=== PATIENT | female | born 1960 | race Caucasian/White ===

== ENCOUNTER 2017-11-17 09:20 | Emergency (ER) | payer BC, SELFPAY ==
[2017-11-17 09:37] VITALS: BP 122/73; PULSE 81; RESP 20; TEMP 36.8; O2SAT 99; BMI 25.8
--- NOTE | 2017-11-17 10:15 | HMH.EDUTC ---
[facility] [place] Clinical Impression: Influenza B Disposition: Home, Self-Care Condition on Discharge: Good Instructions: Influenza Additional Instructions: * Discussed tamiflu. Pt declined. * Lots of rest * Increase fluids, water, gatorade, powerade, pedialyte if /toddler/child * Monitor Temp. Tylenol every 4 hours as needed no more then 5 times a day or 4000mg in 24 hours and/or ibuprofen every 6 hours as needed no more then 3200mg in 24 hours (as long as your primary care doctor has told you that it is ok to take both) for fever/aches/pain. ER if fever no less than 101 despite tylenol and Ibuprofen * OTC cold/flu/sinus medication is ok but pick one. Do not take multiple different ones as they have similar ingredients and you can overdose on cold medication. * You (or your child) are contagious until no fever, aches, chills x 24 hours without medication for symptoms. Follow up with your primary care IMMEDIATELY for new or worsening symptoms, improvement followed by suddenly feeling worse OR no noticeable improvement over the next 48-72 hours. 911 for difficulty breathing Time of Disposition: 10:44 Medical Decision Making Vital Signs: 11/17/17 09:37 Temperature 98.2 F Temperature Source Temporal Artery Scan Pulse Rate [Right] 81 Respiratory Rate 20 Blood Pressure [Right Arm] 122/73 Blood Pressure Mean [Right Arm] 89 Blood Pressure Source [Right Arm] Automatic Cuff Blood Pressure Position [Right Arm] Sitting 02 Sat by Pulse Oximetry 99 Oxygen Delivery Method Room Air - Lab Data Lab results reviewed: Yes: I reviewed the patient's lab results. Lab Results 11/17/17 09:36: Influenza Type A Ag Negative, Influenza Type B Ag Positive A - Rigo Inquiry Pt receiving controlled substance: No [facility] [place] HPI - General Stated complaint: flu like symptoms Time Seen by Provider: 11/17/17 10:15 Mode of Arrival: Ambulatory Source of Information: Patient Limitations: No Limitations Description of Symptoms (Recalled from Triage Doc. by RN): COUGH, CONGESTION, BODY ACHES, FEVER HEENT Symptoms (Recalled from RN notes): Yes Resp Symptoms (Recalled from RN notes): No Skin Symptoms (Recalled from RN notes): No MS Symptoms (Recalled from RN notes): No Functional Status (Recalled from RN notes): N - History of Present Illness Provider Complaint: c/o nonprod cough, bodyaches, chills, fever 101, nasal congestion all starting yesterday. Minimal malaise late Thursday but woke up feeling much worse yesterday. No known sick contacts. Hasn't taken or tried anything for symptoms. Temp 99 this morning. - Related Data Home Medications Medication Instructions Recorded Confirmed Estradiol/Norethindrone Acet 0.05 mg * DAILY 11/17/17 11/17/17 [Combipatch 0.05-0.14 mg Ptch] Allergies Allergy/AdvReac Type Severity Reaction Status Date / Time No Known Allergies Allergy Verified 11/17/17 09:41 - Worker's Comp Is this a Worker's Comp case?: No [facility] History I have reviewed the patient's past medical history: Yes Medical History: Denies:: Diabetes Mellitus Type 2, Hypertension Other Surgeries: Yes: Other (myomectomy, laser surgery for dysplasia) - *Social History Smoking Status: Never smoker Alcohol Intake: never - Psychiatric History Expresses thoughts of harming self/others: None Suicide Plan Description: No Plan ROS Obtained: Yes Systems reviewed as appropriate & no additional complaints - Constitutional Constitutional: Reports as per HPI, Reports fatigue, Reports headache(s) (intermittently), Reports poor appetite (drinking well) - Eyes Eyes: Denies change in vision, Denies eye discharge, Denies eye pain - ENT Ears, Nose, Mouth, and Throat: Denies dizziness, Denies otalgia, Reports nasal congestion, Reports nasal discharge, Denies post nasal drip, Denies sinus pain, Denies sore throat - Cardiovascular Cardiovascular: Denies chest pain, Denies irregular heart rhythm - Respiratory Respiratory:
[2017-11-17 10:19] LABS: UTC Influenza A Antigen Negative (Negative); UTC Influenza B Antigen Positive (Negative)
== END 2017-11-17 10:49 | disposition home or self-care (01) ==
PROVIDERS: Emergency Provider Nurse Practitioner Family
DX: J11.1 Influenza due to unidentified influenza virus with other respiratory manifestations (principal)
CPT/HCPCS: 87804; 99202

== ENCOUNTER → 2017-12-22 13:20 | Outpatient (CLI) | payer BC, SELFPAY ==
[2017-12-22 14:04] LABS: Alanine Aminotransferase 31 U/L (12-78); Albumin Level 3.6 gm/dL (3.4-5.0); Alkaline Phosphatase 84 U/L (46-116); Anion Gap 10.3 mEq/L (5-15); Aspartate Amino Transferase 13 U/L (15-37); Basophils % 0.4 % (0.1-2.0); Bilirubin,Total 0.4 mg/dL (0.2-1.0); Blood Urea Nitrogen 20 mg/dL (7-18); Calcium 8.6 mg/dL (8.5-10.1); Carbon Dioxide 29 mmol/L (21.0-32.0); Chloride 105 mmol/L (98-107); Creatinine,Serum 0.78 mg/dL (0.55-1.02); Eosinophils # 0.1 K/mm3 (0.0-0.4); Eosinophils % 1.5 % (0.1-12.0); Estimated Glomerular Filt Rate 77 ml/min (>60); GFR (African American) 93 ML/MIN (>60); Globulin 3.5 gm/dl (1.3-3.2); Glucose 90 mg/dL (74-106); Hematocrit 42.7 % (37.0-47.0); Hemoglobin 14.1 g/dL (12.2-16.2); Lymphocytes # 1.4 K/mm3 (0.7-4.5); Lymphocytes % 20.5 K/mm3 (10-50); Mean Corpuscular HGB Conc 33.1 g/dL (31.8-35.4); Mean Corpuscular Hemoglobin 30.6 pg (27.0-31.2); Mean Corpuscular Volume 92.6 fl (81-99); Mean Platelet Volume 7.8 fl (7.4-10.4); Monocytes # 0.4 K/mm3 (0.1-1.0); Monocytes % 5.1 % (1.7-9.3); Neutrophils % 72.6 % (37.0-80.0); Platelet Count 263 K/mm3 (142-424); Potassium 4.3 mmoL/L (3.5-5.1); Red Blood Count 4.62 M/mm3 (4.20-5.40); Red Cell Distribution Width 12.7 % (11.5-17.5); Sodium 140 mmol/L (136-145); Thyroid Stimulating Hormone 0.59 uIU/ml (0.358-3.740); Total Protein,Serum 7.1 gm/dL (6.4-8.2); White Blood Count 6.9 K/mm3 (4.8-10.8)
[2017-12-22 16:12] LABS: Amphetamine/Metha Screen,Urine Negative ng/mL (<1000); Barbiturates Screen,Urine Negative ng/mL (<200); Benzodiazepines Screen,Urine Negative ng/mL (200); Cannabinoid Screen,Urine Negative ng/mL (<50); Cocaine Screen,Urine Negative ng/g (<300); Methadone Screen,Urine Negative ng/mL (<300); Opiate Screen,Urine Negative ng/mL (<300); Phencyclidine Screen,Urine Negative ng/mL (<25)
== END ==
PROVIDERS: Visit Provider Nurse Practitioner Psychiatric/Mental Health
DX: F33.0 Major depressive disorder, recurrent, mild (principal)
CPT/HCPCS: 36415; 80053; 80305; 84443; 85025

== ENCOUNTER → 2018-07-27 10:11 | Outpatient (POV) | payer BC, SELFPAY | PROVIDERS: Visit Provider Dermatology | DX: Z00.00 Encounter for general adult medical examination without abnormal findings (principal) ==

== ENCOUNTER → 2019-03-10 11:24 | Outpatient (CLI) | payer BC, SELFPAY ==
--- NOTE | 2019-03-10 11:33 | XR_ITS ---
XR foot LT min 3V HISTORY: ITS.REASON: PAIN IN LEFT TOES ORDERING PHYSICIAN: Adilene Garrett MD PATIENT AGE: 58 years COMPARISON: 05/21/2017 FINDINGS: There is osteosclerosis of the middle phalanx and distal phalanx of the third digit. There is cortical irregularity involving the PIP and DIP of the third digit. These findings are similar when compared to 05/21/2017. Is this the area of patient's pain?. There is decreased density involving the distal phalanx of the fourth digit nonspecific. No fracture or dislocation. IMPRESSION: 1. No change with no acute finding. 2. Chronic sclerotic changes with periarticular cortical irregularity at the PIP and DIP of the third digit. Not significantly changed
== END ==
PROVIDERS: PCP Emergency Medicine; Visit Provider Emergency Medicine
DX: M79.675 Pain in left toe(s) (principal)
CPT/HCPCS: 73630

== ENCOUNTER → 2019-07-14 19:20 | Outpatient (CLI) | payer BC, SELFPAY | PROVIDERS: Visit Provider Podiatrist | DX: L60.0 Ingrowing nail (principal) | CPT/HCPCS: 87102; 87206; 87220 ==

== ENCOUNTER 2020-03-30 09:15 | Emergency (ER) | payer BC, SELFPAY ==
[2020-03-30 09:19] VITALS: BP 144/85; PULSE 59; RESP 16; TEMP 37.1; O2SAT 98; BMI 25.8
--- NOTE | 2020-03-30 09:39 | PC.NURSE ---
visual acuity rt 20/40 -2 lt 20/40 -2
[2020-03-30 09:57] VITALS: BP 155/86; PULSE 90; RESP 18; O2SAT 97
--- NOTE | 2020-03-30 10:06 | HMH.EDEYEP ---
ED Disposition Clinical Impression: Irritation of eyelid, Corneal irritation of left eye Disposition: Home, Self-Care Condition on Discharge: Good Instructions: DI for Corneal Foreign Body-Eye, DI for Eye Pain Additional Instructions: You have been evaluated for pain to your left lower eyelid. Likely a foreign body that is no longer there. Please use erythromycin for 5 days. Take Tylenol and ibuprofen for pain. Follow-up with your primary care doctor. Follow-up with an product development chemist if you continue to have pain in the next day or 2. Return to the emergency department for any changes in your vision, eye drainage. Prescriptions: Erythromycin Base [Erythromycin 1gm opth ointment] 1 applicatio OS QID 5 Days #3.5 oint...g. Prescription Printed Referrals: Montana Taylor [Primary Care Provider] - Time of Disposition: 10:16 - Critical Care Critical Care Time: No Attestation: On 03/30/20, the high probability of a clinically significant, sudden or life threatening deterioration of the following system(s) required my full and direct attention, intervention and personal management. The time I documented below is in addition to time spent performing reported procedures but includes the following listed in this critical care notation. Medical Decision Making - Rigo Inquiry Pt receiving controlled substance: No Vital Signs: 03/30/20 09:19 03/30/20 09:57 Temperature 98.8 F Temperature Source Oral Pulse Rate [Left Radial] 59 L 90 Respiratory Rate 16 18 Blood Pressure [Right Arm] 144/85 H 155/86 H Blood Pressure Mean [Right Arm] 104 109 Blood Pressure Source [Right Arm] Automatic Cuff Blood Pressure Position [Right Arm] Sitting Sitting 02 Sat by Pulse Oximetry 98 97 Oxygen Delivery Method Room Air Medical Decision Narrative: In summary this is a 59-year-old female presenting to the emergency department with a foreign body sensation in her left eye. Patient appears comfortable on arrival. She is not tearing. She has a small amount of alma injection and obvious irritation to the inner aspect of the lower lid. Concerned that she had a foreign body that is now no longer there. Tetracaine applied. Patient's eye was stained with fluorescein. No significant uptake over the cornea. Visual acuity adequate. No pain with extraocular movements. No photophobia. No history of trauma, I doubt retinal or vitreous detachment. Patient was given prescription for erythromycin drops. Recommended to use in addition to artificial tears. Recommended to follow-up with her PCP, may need to see an product development chemist if symptoms persist. Eye Problem HPI - General Chief complaint: Eye Problems Stated complaint: possible something in left eye left big toe pain Time Seen by Provider: 03/30/20 10:00 Mode of Arrival: Ambulatory Source of Information: Patient Limitations: No Limitations Description of Symptoms (Recalled from ER Triage Doc. by RN): to ed per pvt car with c/o ?FB sensation lt eye starting yesterday. c/o pain feels like its bruised . states she has flushed her eye with no improvement. pt also c/o lt great toe pain - History of Present Illness HPI Narrative: 59-year-old female presenting to the emergency department with left eye pain. Symptoms started yesterday when she was outside working in her yard. [place] like something went into her eye. She had pain on the lower aspect. Had pain with blinking. No photophobia. No pain with eye motion. She did not notice redness or drainage from her eye today. Feels like something is stuck in her lower lid. Does not wear contacts. - Related Data Home Medications Medication Instructions Recorded Confirmed Estradiol/Norethindrone Acet 0.05 mg * DAILY 11/17/17 08/15/19 [Combipatch 0.05-0.14 mg Ptch] bupropion HCl 150 mg 24 hr tablet, PO #30 07/12/19 08/15/19 extended release Previous Rx's Medication Instructions Recorded Benzonatate [Tessalon Perle 100m
[2020-03-30 10:21] VITALS: BP 143/77; PULSE 55; RESP 20; TEMP 36.8; O2SAT 98
== END 2020-03-30 10:22 | disposition home or self-care (01) ==
PROVIDERS: Emergency Provider Emergency Medicine; PCP Family Medicine
DX: H18.892 Other specified disorders of cornea, left eye (principal); J45.909 Unspecified asthma, uncomplicated
CPT/HCPCS: 99282

== ENCOUNTER 2021-10-04 15:53 | Emergency (ER) | payer BC, SELFPAY ==
[2021-10-04 17:20] VITALS: BP 132/72; PULSE 78; RESP 19; TEMP 36.9; O2SAT 98; BMI 26.6
[2021-10-04 17:46] LABS: UTC Strep Screen (Rapid) Negative (Negative)
--- NOTE | 2021-10-04 17:57 | HMH.EDUTC ---
[facility] [place] Disposition Clinical Impression: Viral syndrome Acute bronchitis Qualifiers: Bronchitis organism: unspecified organism Qualified Code(s): J20.9 - Acute bronchitis, unspecified Disposition: Home, Self-Care Condition on Discharge: Good Instructions: Preventing the Spread of Coronavirus Discharge Instructions, DI for COVID-19 (Suspected or Confirmed ) Additional Instructions: Drink plenty of fluids. Take tylenol or ibuprofen for pain or fever. Take the medications as directed. Follow up with your regular doctor. GO TO THE ER FOR ANY WORSENING SYMPTOMS Quarantine until you know the results of your covid-19 test. If it is positive, the health department should call you and give you further instructions about your length of Quarantine and other things. Notify your school or workplace of your results and follow their instructions regarding return to work/school. The cough medication (promethazine dm) will make you drowsy, so don't drive or operate heavy machinery after taking it. Prescriptions: Albuterol Sulfate [Albuterol Sulfate Hfa] 2 puffs IH Q6HP PRN 30 Days #1 each PRN Reason: Shortness Of Breath Transmission Status: Pending to [facility] # Promethazine/Dextromethorphan [Promethazine-Dm Syrup] 5 ml PO Q6HP PRN #240 ml PRN Reason: Cough Transmission Status: Pending to [facility] # methylPREDNISolone [Medrol] 4 mg PO DIRECTED 6 Days #21 packet Transmission Status: Pending to [facility] # Azithromycin [Z-Taz 250mg Tab*] 250 mg PO UD DOSE PK #6 tab Transmission Status: Pending to [facility] # Referrals: Montana Taylor [Primary Care Provider] - Time of Disposition: 18:23 Medical Decision Making - Medical Records Medical records reviewed: No: I reviewed the patient's medical records. - Rigo Inquiry Pt receiving controlled substance: No Vital Signs: 10/04/21 17:20 Temperature 98.5 F Temperature Source Oral Pulse Rate [Right Brachial] 78 Respiratory Rate 19 Blood Pressure [Right Arm] 132/72 Blood Pressure Mean [Right Arm] 92 Blood Pressure Source [Right Arm] Automatic Cuff Blood Pressure Position [Right Arm] Sitting 02 Sat by Pulse Oximetry 98 Oxygen Delivery Method Room Air - Lab Data Lab Results 10/04/21 17:45: Strep Scn Rapid Clinic Negative Orders (Tests/Meds): ORDERS Category Date Time Status Full Resp Panel w/COVID ([facility]) Routine Lab 10/04/21 17:16 Received Strep Screen Confirmation Stat Micro 10/04/21 17:45 Received [facility] UTC HPI - General Stated complaint: aches runny nose headache congestion Time Seen by Provider: 10/04/21 17:57 Mode of Arrival: Ambulatory Source of Information: Patient Limitations: No Limitations Description of Symptoms (Recalled from Triage Doc. by RN): PATIENT C/O BODY ACHES, HEADACHE, CONGESTION, COUGH, SORE THROAT, AND BLISTER ON TONGUE FOR 3 DAYS HEENT Symptoms (Recalled from RN notes): Yes Resp Symptoms (Recalled from RN notes): Yes Skin Symptoms (Recalled from RN notes): No MS Symptoms (Recalled from RN notes): No Functional Status (Recalled from RN notes): WNL - History of Present Illness Provider Complaint: She c/o sore throat, sinus congestion and she has a cough with chest congestion for the past 2 days. She has not been vaccinated against covid-19, but she has had covid about 6 months ago. - Related Data Home Medications Medication Instructions Recorded Confirmed sertraline 100 mg tablet 50 mg PO DAILY tab 04/16/20 10/04/21 Famotidine [Pepcid 20mg Tablet] 20 mg PO DAILY 10/04/21 10/04/21 Previous Rx's Medication Instructions Recorded Albuterol Sulfate [Albuterol 2 puffs IH Q6HP PRN 30 Days #1 each 10/04/21 Sulfate Hfa] Azithromycin [Z-Taz 250mg Tab*] 250 mg PO UD DOSE PK #6 tab 10/04/21 Promethazine/Dextromethorphan 5 ml PO Q6HP PRN #240 ml 10/04/21 [Promethazine-Dm Syrup] methylPREDNISolone [Medrol] 4 mg PO DIRECTED 6 Days #2
[2021-10-04 18:10] LABS: Adenovirus,PCR Not Detected (NotDetected); Coronavirus 229E Not Detected (NotDetected); Coronavirus NL63 Not Detected (NotDetected); Coronavirus OC43 Not Detected (NotDetected); Coronovirus HKU1,PCR Not Detected (NotDetected); Human Metapneumovirus Not Detected (NotDetected); Influenza A, PCR Not Detected (NotDetected); Influenza AH1, 2009 Not Detected (NotDetected); Influenza AH1, PCR Not Detected (NotDetected); Influenza AH3,PCR Not Detected (NotDetected)
[2021-10-04 18:11] LABS: Bordetella Pertussis Not Detected (NotDetected); Chlamydophila Pneumoniae, PCR Not Detected (NotDetected); Coronavirus 19, PCR Not Detected (NotDetected); Influenza B, PCR Not Detected (NotDetected); Mycoplasma Pneumoniae, PCR Not Detected (NotDetected); Parainfluenza 1, PCR Not Detected (NotDetected); Parainfluenza 2, PCR Not Detected (NotDetected); Parainfluenza 3, PCR Not Detected (NotDetected); Parainfluenza 4, PCR Not Detected (NotDetected); Respiratory Syncytial Virus Not Detected (NotDetected)
[2021-10-04 18:23] VITALS: BP 132/72; PULSE 78; RESP 19; TEMP 36.9; O2SAT 98
[2021-10-04 21:40] LABS: Rhinovirus/Enterovirus Detected (NotDetected)
== END 2021-10-04 18:26 | disposition home or self-care (01) ==
PROVIDERS: Emergency Provider Nurse Practitioner Family; PCP Family Medicine
DX: J20.9 Acute bronchitis, unspecified (principal); J45.909 Unspecified asthma, uncomplicated
CPT/HCPCS: 87581; 87632; 87798; 87880; 99203; C9803; G0463; U0003; U0005

== ENCOUNTER 2022-08-12 14:15 | Emergency (ER) | payer BC, SELFPAY ==
--- NOTE | 2022-08-12 15:47 | EXP.UTC ---
Discharge Plan Disposition Patient Disposition: Home, Self-Care Condition: Good Prescriptions Prescriptions: New methylprednisolone 4 mg Tablets,Dose Pack 4 mg PO DIRECTED Qty: 21 0RF No Action sertraline 100 mg tablet 50 mg PO DAILY Label Comments: TK 1 T PO QD famotidine 20 MG tablet 20 mg PO DAILY promethazine-DM 120 ML syrup 5 ml PO Q6HP PRN (Reason: Cough) Qty: 240 0RF azithromycin 250 MG tablet 250 mg PO UD DOSE PK Qty: 6 0RF Rx Instructions: Take two (2) tablets today, then one (1) tablet days #2 thru #5 methylprednisolone 4 MG tablets,dose pack 4 mg PO DIRECTED 6 Days Qty: 21 0RF albuterol sulfate 8.5 GM HFA aerosol inhaler 2 puffs IH Q6HP PRN (Reason: Shortness Of Breath) 30 Days Qty: 1 5RF Referrals Follow up/Referrals: Usha Mccullough MD [Primary Care Provider] - See instructions Bam Baez MD [Staff Physician] - See instructions Activity Restrictions/Add. Instructions Additional Instructions/Restrictions: Rest the extremity. Take the medications for your pain. Follow up with Dr. Baez (orthopedics). I put in a referral but you need to call his office and schedule an appointment. Follow up with your regular doctor. GO TO THE ER FOR ANY WORSENING SYMPTOMS Clinical Impressions Clinical Impression: Left shoulder pain, Tendinopathy of left shoulder, Arm pain, left Instructions Patient Instructions: DI for Shoulder Tendinopathy Discharge ED Provider: Kalyan Pool [facility] General Stated complaint: Pain in Lt arm Time Seen by Provider: 08/12/22 15:47 History of Present Illness Provider Complaint: She c/o left arm pain for the past 2 weeks. She denies any known injury. She did break her humerus as a a child and it has hurt on and off since then, but this pain is different than her normal pain. Related Data Home Medications Medication Instructions Recorded Confirmed sertraline 100 mg tablet 50 mg PO DAILY Depression 04/16/20 10/04/21 famotidine 20 mg tablet 20 mg PO DAILY GERD 10/04/21 10/04/21 Previous Rx's Medication Instructions Recorded albuterol sulfate 90 mcg/actuation 2 puffs IH Q6HP PRN Shortness Of 10/04/21 aerosol inhaler Breath 30 days #1 ea azithromycin 250 mg tablet 250 mg PO UD DOSE PK #6 tabs 10/04/21 methylprednisolone 4 mg tablets in 4 mg PO DIRECTED 6 days #21 10/04/21 a dose pack packets promethazine-DM 6.25 mg-15 mg/5 mL 5 ml PO Q6HP PRN Cough #240 mL 10/04/21 oral syrup methylprednisolone 4 mg tablets in 4 mg PO DIRECTED #21 tabs 08/12/22 a dose pack Allergies Allergy/AdvReac Type Severity Reaction Status Date / Time No Known Allergies Allergy Verified 08/12/22 16:07 PFSH PFS Social History Smoking Status: Never smoker second hand exposure: No alcohol intake: never current occupational status: other Travel in the last 8 weeks: Inside the [facility] housing: other ROS Obtained: Yes All systems reviewed & no additional complaints except as documented Constitutional Constitutional: Denies chills and Denies fever(s) Integumentary/Breasts Skin/Breast: Denies redness, Denies rash and Denies wounds Neurologic Neurologic: Denies paresthesias Physical Exam General General appearance: alert and in no apparent distress Head Head exam: atraumatic, normocephalic and normal inspection Eye Eye exam: Present normal appearance, PERRL and EOMI ENT ENT exam: Present normal exam, normal oropharynx, mucous membranes moist, TM's normal bilaterally and normal external ear exam Neck Neck exam: Present normal inspection, full ROM and trachea midline; Absent meningismus or lymphadenopathy Chest Chest inspection: Present normal inspection and symmetric chest wall rise; Absent tenderness Respiratory Respiratory exam: Present normal lung sounds bilaterally; Absent respiratory distress Cardiovascular Cardiovas
--- NOTE | 2022-08-12 15:50 | XR_ITS ---
PROCEDURE INFORMATION: Exam: XR Left Shoulder Exam date and time: 08/12/2022 4:09 PM Age: 61 years old Clinical indication: Other: Pain in left shoulder that radiates down TECHNIQUE: Imaging protocol: Radiologic exam of the Left shoulder. Views: 2 or more views. COMPARISON: CR XR ELBOW LT MIN 3V 08/12/2022 4:04 PM FINDINGS: Bones/joints: Generalized osteopenia. Soft tissues: Normal. IMPRESSION: No evidence of acute osseous injury.
--- NOTE | 2022-08-12 15:50 | XR_ITS ---
PROCEDURE INFORMATION: Exam: XR Left Wrist Exam date and time: 08/12/2022 4:00 PM Age: 61 years old Clinical indication: Other: Pain in left shoulder that radiates down TECHNIQUE: Imaging protocol: Radiologic exam of the Left wrist. Views: 3 or more views. COMPARISON: CR XR HAND LT MIN 3V 08/12/2022 3:57 PM FINDINGS: Bones/joints: Generalized osteopenia. Soft tissues: Mild diffuse soft tissue swelling. IMPRESSION: 1. Mild diffuse soft tissue swelling. 2. No evidence of acute osseous injury.
--- NOTE | 2022-08-12 15:50 | XR_ITS ---
PROCEDURE INFORMATION: Exam: XR Left Forearm Exam date and time: 08/12/2022 4:03 PM Age: 61 years old Clinical indication: Other: Pain in left shoulder that radiates down TECHNIQUE: Imaging protocol: Radiologic exam of the Left forearm. Views: 2 views. COMPARISON: CR XR WRIST LT MIN 3V 08/12/2022 4:00 PM FINDINGS: Bones/joints: Regions of osteopenia demonstrated in the distal radius and ulna. Soft tissues: Normal. IMPRESSION: 1. No acute findings. 2. Osteopenia involving the distal radius and ulna.
--- NOTE | 2022-08-12 15:50 | XR_ITS ---
PROCEDURE INFORMATION: Exam: XR Left Elbow Exam date and time: 08/12/2022 4:04 PM Age: 61 years old Clinical indication: Other: Pain in left shoulder that radiates down TECHNIQUE: Imaging protocol: Radiologic exam of the Left elbow. Views: 3 or more views. COMPARISON: CR XR FOREARM LT 2V 08/12/2022 4:03 PM FINDINGS: Bones/joints: Normal. Soft tissues: Normal. IMPRESSION: No acute findings.
--- NOTE | 2022-08-12 15:50 | XR_ITS ---
PROCEDURE INFORMATION: Exam: XR Left Humerus Exam date and time: 08/12/2022 4:13 PM Age: 61 years old Clinical indication: Other: Pain in left shoulder that radiates down TECHNIQUE: Imaging protocol: Radiologic exam of the Left humerus. Views: 2 or more views. COMPARISON: CR XR SHOULDER LT MIN 2V 08/12/2022 4:09 PM FINDINGS: Bones/joints: Normal. Soft tissues: Normal. IMPRESSION: No acute findings.
--- NOTE | 2022-08-12 15:50 | XR_ITS ---
PROCEDURE INFORMATION: Exam: XR Left Hand Exam date and time: 08/12/2022 3:57 PM Age: 61 years old Clinical indication: Other: Pain in left shoulder that radiates down TECHNIQUE: Imaging protocol: Radiologic exam of the Left hand. Views: 3 or more views. COMPARISON: No relevant prior studies available. FINDINGS: Bones/joints: Mild periarticular osteopenia. Soft tissues: Normal. IMPRESSION: 1. No evidence of acute osseous injury. 2. Mild changes of periarticular osteopenia. Findings nonspecific but can be seen with inflammatory arthritis.
[2022-08-12 16:05] VITALS: BP 134/85; PULSE 60; RESP 16; TEMP 36.6; O2SAT 98; BMI 25.9
[2022-08-12 16:59] VITALS: BP 134/85; PULSE 60; RESP 16; TEMP 36.6
== END 2022-08-12 16:59 | disposition home or self-care (01) ==
PROVIDERS: Emergency Provider Nurse Practitioner Family; PCP Family Medicine
DX: M75.22 Bicipital tendinitis, left shoulder (principal); R06.02 Shortness of breath; R05.9 Cough, unspecified; F32.A Depression, unspecified; Z79.51 Long term (current) use of inhaled steroids; Z79.52 Long term (current) use of systemic steroids; Z79.899 Other long term (current) drug therapy
CPT/HCPCS: 73030; 73060; 73080; 73090; 73110; 73130; 99213; G0463

== ENCOUNTER 2025-02-20 10:07 | Outpatient (CLI) | payer BC, SELFPAY ==
--- OUTSIDE RECORDS SUMMARY | 2025-02-21 13:25 | XMS_ITS ---
Author Organization [facility] , [facility] Address [address] [place] [address] Phone Care Team Providers Care Associate Professor Name Role Phone Francisca SHARP, Hansel Srinivasan Unavailable + [phone] Problems Includes: Active, inactive, and resolved Problems All Visits Onset Date Resolved Date Provider Condition S tatus Joint Pain in the Left Knee 10/09/2023 Bryan Beth PA-C Active Last Documented On 3 11:45AM ; [facility] Plan of Treatment No Plan of Treatment Recorded Assessments Includes: Assessments for all patient encounters No Assessments Recorded Medical Equipment - Implanted Devices Includes: Current and historical Devices No Medical Equipment Recorded Medications Includes: Current and historical Medications No Medications Taken Medications Administered Includes: Administered Medications in patient's chart No Administered Medications Recorded Results Includes: Results from 02/22/2024 through 02/21/2025 No Results Recorded For Specified Dates History of Present Illness History of Present Illness not supported for this document type No History of Present Illness Recorded Social History Description Last Updated Tobacco non-user 10/09/2023 Last Documented On 3 8:04AM ; [facility] Smoking Status Unknown Medical History Includes: Medical History in patient's chart No Medical History Recorded Family History Includes: Family History in patient's chart No Family History Recorded Review of Systems Review of Systems not supported for this document type No Review of Systems Recorded Mental Status No Mental Status Recorded Functional Status No Functional Status Recorded Physical Exam Physical Exam not supported for this document type No Physical Exam Recorded Allergies Includes: Active, inactive, and resolved Allergies No Known Allergies Insurance Includes: Active Insurance Policies Plan Name Member ID Group # Subscriber Relationship Effect yamileth Dates 1 - [facility] [id number] Pat Martinez [employer] Clinical Notes Includes: Signed Clinical Notes starting from 10/09/2022 No Clinical Notes Recorded
--- OUTSIDE RECORDS SUMMARY | 2025-02-21 13:25 | XMS_ITS ---
Care Plan - [facility], [facility] Created on: February 21, 2025 Pat Martinez : 1960 Sex: Female Author Organization [facility] Address [address] [place] [address] Phone Care Team Providers Care Office Rental Clerk Name Role Phone Francisca SHARP, Hansel Srinivasan Unavailable [phone]
--- OUTSIDE RECORDS SUMMARY | 2025-02-21 13:25 | XMS_ITS | Clinical Summary ---
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 It was uncomfortable and caused a limp for the 1st 2-3 weeks but over the last few weeks started to resolve. Today during the visit really minor medial joint line tenderness and positive Efrain's on exam. At this point patient wishes to pursue conservative management and monitoring. If symptoms get worse would recommend MRI of the left knee. Follow up in the office p.r.n. - Last Documented On 10/12/2023 8:04AM ; [facility], [facility] Assessments Includes: Assessments from this encounter Findings left knee pain, resolved - Last Documented On 10/12/2023 8:04AM ; [facility], [facility] Medical Equipment - Implanted Devices Includes: Current Devices No Medical Equipment Recorded Medications Includes: Medications discussed during this encounter and other current Medications No Medications Taken Medications Administered Includes: Administered Medications from this encounter No Administered Medications Recorded Vital Signs Includes: Vital Signs from this encounter Vital Name 10/09/2023 11:55A Height (in) 69 Weight (lb) 165 Body Mass Index 24.4 Body Surface Area 1.9 Note: AB Last Documented: On 10/09/2023 11:56A M ; [facility], [facility] Results Includes: Results discussed during this encounter No Results Recorded For Specified Dates History of Present Illness Includes: History of Present Illness from this encounter HPI Pat Martinez is a 63 year old female. - Allergy list reviewed - Problem list reviewed - Medication list reviewed Social History Description Last Updated Tobacco non-user 10/09/2023 Last Documented On 3 8:04AM ; [facility], [facility] Smoking Status Unknown Procedures and Surgical History Includes: Procedures from this encounter Procedures Code Diagnosis Performing Provider Service L ocation Service Date use of tobacco assessment performed 1000F Last Documented On 3 11:56AM ; [facility], [facility] review of medications documented 1160F Last Documented On 3 11:56AM ; [facility], [facility] Medical History Includes: Medical History addressed during this encounter No Medical History Recorded Family History Includes: Family History addressed during this encounter No Family History Recorded Review of Systems Includes: Review of Systems from this encounter No Review of Systems Recorded Mental Status Includes: Mental Status from this encounter No Mental Status Recorded Functional Status Includes: Functional Status from this encounter No Functional Status Recorded Physical Exam Includes: Physical Exam from this encounter Allergies Includes: Active Allergies No Known Allergies Encounters Encounter Provider Location Date Check-In Time Check-Out Time Diagnosis Physician Specified Bryan Beth PA-C [facility] 10/09/20 11:33AM 12:05PM Insurance Includes: Active Insurance Policies Plan Name Member ID Group # Subscriber Relationship Effect yamileth Dates 1 - [facility] [id number] Pat Martinez Se lf Clinical Notes Includes: Clinical Notes from this encounter * Progress note Date Encounter Last Documented by 10/09/2023 Physician Specified Last miranda gates on 10/12/2023; 8:04 AM, Bryan Beth PA-C; [facility], [facility] Active Problems & Conditions - Joint Pain in the Left Knee Subjective Which knee or hip hurts the most? Where on the hip or knee? LEFT KNEE PAIN JUST HAVE PAIN, WAS WALKING WITH A LIMP,DOES NOT HAVE ANY PAIN NOW, PAIN STARTED 6 MONTHS AGO BUT PAIN IS NOT ALL THE TIME,HAS NO PAIN FOR 3 WEEKS Have you had prior knee or hip surgery?NO What medicines have you taken for the pain?NO What injections have you tried for the pain?NO Do you need a cane or walker to ambulate?NO Have you improved your shoes or tried a brace?NO Have you tried to lose weight?NO Chief Complaint The Chief Complaint is: LEFT KNEE PAIN. Referred Here Referred by. History of Present Illness Pat Martinez is a 63 year old female. - Allergy list reviewed - Problem list reviewed - Medication list reviewed Current Medication - None Social History Tobacco use: Tobacco non-user. Allergies - No Known Allergies Physical Findings - Vitals taken 10/09/2023 11:55 am AB Height 69 in Weight 165 lbs Body Mass Index 24.4 kg/m2 Body Surface Area 1.9 m2 Patient alert and oriented healthy weight normal gait left Hip ROM normal left Knee Skin around knee clean, dry and intact No swelling, no effusion ROM 0-130 slight MJT, positive Efrain's on exam Strength [5/5] TA, [5/5] Gastroc, [5/5] Quad Palpable pulses DP/PT Tests Four views of the left knee taken today demonstrates relatively well-maintained medial and lateral joint space. Medial femoral condyle demonstrates some femoral flattening noted on the AP standing films. Normal contour of the medial femoral condyle on the PA flexion films. Assessment left knee pain, resolved Plan Patient began having knee pain about 6-8 weeks ago. It was uncomfortable and caused a limp for the 1st 2-3 weeks but over the last few weeks started to resolve. Today during the visit really minor medial joint line tenderness and positive Efrain's on exam. At this point patient wishes to pursue conservative management and monitoring. If symptoms get worse would recommend MRI of the left knee. Follow up in the office p.r.n. Notes This dictation was done with voice recognition software and may contain errors and omissions. Practice Management Use of tobacco assessment performed Review of medications documented.
== END 2025-02-20 23:59 | disposition home or self-care (01) ==
LOC: LAB.DROPOF 02-21 13:24
PROVIDERS: PCP Student in an Organized Health Care Education/Training Program; Visit Provider Student in an Organized Health Care Education/Training Program
DX: R52 Pain, unspecified (principal)
CPT/HCPCS: 87635